=== PATIENT | male | born 1940 | race Caucasian/White ===

== ENCOUNTER 2021-11-04 11:45 | Inpatient (IN) ==
[2021-11-04 12:47] LABS: ABS Eosinophils 0.2 10^3/ul (0-0.6); ABS Lymphocytes 0.6 10^3/ul (1.0-4.8); ABS Monocytes 0.6 10^3/ul (0-0.8); ABS Neutrophils 6.2 10^3/ul (1.5-7.7); Eosinophil % 2.1 %; Hematocrit 32 % (42-52); Hemoglobin 10.8 g/dL (14.0-18.0); Lymphocyte % 8.3 %; Mean Corpuscular HGB Conc 34 g/dL (31-36); Mean Corpuscular Hemoglobin 30 pg (27-31); Mean Corpuscular Volume 90 fL (80-94); Mean Platelet Volume 9.4 fL (7.4-10.4); Nucleated Red Blood Cells % 0.1; Platelet Count 63 10^3/uL (150-450); Red Blood Count 3.57 10^6 /uL (4.18-5.48); Red Cell Distribution Width 19 % (10-15); White Blood Count 7.6 10^3/uL (3.5-10.8)
[2021-11-04 12:59] LABS: ALT 17 U/L (7-52); Albumin 3.1 g/dL (3.2-5.2); Albumin/Globulin Ratio 1.3 (1-3); Alkaline Phosphatase 52 U/L (35-149); Blood Urea Nitrogen 21 mg/dL (6-24); CO2 Carbon Dioxide 28 mmol/L (22-32); Calcium 8.4 mg/dL (8.6-10.3); Chloride 97 mmol/L (101-111); Globulin 2.3 g/dL (2-4); Glucose 340 mg/dL (70-100); Sodium 132 mmol/L (135-145); Total Protein 5.4 g/dL (6.4-8.9); eGFR CKD-EPI 87.5 (>60)
[2021-11-04 13:02] LABS: Magnesium 0.8 mg/dL (1.9-2.7)
[2021-11-04 13:03] LABS: Troponin I 0.03 ng/mL (<0.03)
[2021-11-04] MEDS ORDERED: Magnesium Sulfate 2 gm BAG 2 GM/50 ML BAG IVPB ONE ×3 (13:06→16:12)
[2021-11-04 13:14] LABS: Urine Appearance Clear; Urine Bilirubin Negative (Negative); Urine Blood Negative (Negative); Urine Color Yellow; Urine Glucose 3+(>=500 mg/dL) (Negative); Urine Ketones Negative (Negative); Urine Nitrite Negative (Negative); Urine Protein Negative (Negative); Urine Specific Gravity 1.011 (1.002-1.030); Urine Urobilinogen Negative (Negative)
[2021-11-04 13:23] LABS: Urine Bacteria Absent (Absent); Urine Red Blood Cell Trace(0-2/hpf) (Absent); Urine Squamous Epithelial Cell Present (Absent); Urine White Blood Cell 1+(6-10/hpf) (Absent)
[2021-11-04 13:24] LABS: Anion Gap 7 mmol/L (2-11)
[2021-11-04 13:37] LABS: TSH Ultra Thyroid Stim Horm 7.15 mcIU/mL (0.34-5.60)
[2021-11-04] MEDS ORDERED: Magnesium Hydroxide LIQ 30 ML UDC PO PRN (15:27)
[2021-11-04] MEDS ORDERED: Dextrose 50% Syringe 50 ml 25 GM/50 ML SYRINGE IV PUSH PRN ×2 (15:44→15:49)
[2021-11-04 16:15] LABS: Rapid COVID-19 Molecular Detected (Undetected)
[2021-11-04] MEDS: cefTRIAXone 1 gm/50 mL NS BAG 1 GM/50 ML BAG IVPB SCH (17:24)
[2021-11-04 18:01] LABS: C Reactive Protein 101.94 mg/L (<8.01)
[2021-11-04 18:53] LABS: Magnesium 1.9 mg/dL (1.9-2.7); Potassium Redraw 4.1 mmol/L (3.5-5.0)
[2021-11-04 18:55] LABS: Troponin I 0.04 ng/mL (<0.03)
[2021-11-04 19:31] LABS: Free T4 0.88 ng/dL (0.61-1.12)
[2021-11-04 20:25] LABS: Phosphorus 3.2 mg/dL (2.5-5.0)
[2021-11-04] MEDS: GLYCOPYRROLATE 1 MG PO SCH ×2 (20:25→21:07)
[2021-11-04] MEDS: Calcium Carb (TUMS) 500 mg CHEW TAB PO SCH (20:34)
[2021-11-04] MEDS: DULoxetine DR 20 mg CAP PO SCH (20:35)
[2021-11-04] MEDS: Insulin GLARGINE 100 un/ml 10 ml VIAL SUBCUT SCH (20:36)
[2021-11-04] MEDS: NS 0.9% 1000 ml BAG 1,000 ML IV SCH (21:22)
[2021-11-05 00:49] LABS: Troponin I 0.04 ng/mL (<0.03)
[2021-11-05 05:57] LABS: ABS Eosinophils 0.1 10^3/ul (0-0.6); ABS Lymphocytes 0.6 10^3/ul (1.0-4.8); ABS Monocytes 0.4 10^3/ul (0-0.8); ABS Neutrophils 4.5 10^3/ul (1.5-7.7); Eosinophil % 2.6 %; Hematocrit 31 % (42-52); Hemoglobin 10.4 g/dL (14.0-18.0); Lymphocyte % 10.5 %; Mean Corpuscular HGB Conc 34 g/dL (31-36); Mean Corpuscular Hemoglobin 30 pg (27-31); Mean Corpuscular Volume 89 fL (80-94); Mean Platelet Volume 8.8 fL (7.4-10.4); Nucleated Red Blood Cells % 0.1; Platelet Count 55 10^3/uL (150-450); Red Blood Count 3.44 10^6 /uL (4.18-5.48); Red Cell Distribution Width 19 % (10-15); White Blood Count 5.8 10^3/uL (3.5-10.8)
[2021-11-05 06:10] LABS: C Reactive Protein 111.91 mg/L (<8.01)
[2021-11-05 08:02] LABS: Albumin 2.8 g/dL (3.2-5.2); Albumin/Globulin Ratio 1.3 (1-3); Calcium 7.9 mg/dL (8.6-10.3); Globulin 2.2 g/dL (2-4); Magnesium 1.5 mg/dL (1.9-2.7); Potassium 3.6 mmol/L (3.5-5.0); Total Bilirubin 1.3 mg/dL (0.2-1.0); eGFR CKD-EPI 92.4 (>60)
[2021-11-05] MEDS ORDERED: Magnesium Sulfate IV 3 GM in NS 0.9% 100 ml BAG 100 ML IVPB ONE (08:59)
[2021-11-05] MEDS: GLYCOPYRROLATE 1 MG PO SCH ×4 (10:38→20:54)
[2021-11-05] MEDS: DULoxetine DR 20 mg CAP PO SCH ×2 (10:38→20:54)
[2021-11-05] MEDS: Aspirin EC 81 mg TAB.EC (enteric coated) PO SCH (10:39)
[2021-11-05] MEDS: Calcium Carb (TUMS) 500 mg CHEW TAB PO SCH ×3 (10:39→20:59)
[2021-11-05] MEDS: Potassium Chlor 20 meq TAB.ER PO SCH (10:41)
[2021-11-05] MEDS: Vitamin THERAPEUTIC TAB PO SCH (10:41)
[2021-11-05] MEDS: NS 0.9% 1000 ml BAG 1,000 ML IV SCH (10:42)
[2021-11-05] MEDS: cefTRIAXone 1 gm/50 mL NS BAG 1 GM/50 ML BAG IVPB SCH (17:11)
[2021-11-05] MEDS: Insulin GLARGINE 100 un/ml 10 ml VIAL SUBCUT SCH (20:56)
[2021-11-06 07:05] LABS: ABS Eosinophils 0.2 10^3/ul (0-0.6); ABS Lymphocytes 0.6 10^3/ul (1.0-4.8); ABS Monocytes 0.4 10^3/ul (0-0.8); ABS Neutrophils 3.8 10^3/ul (1.5-7.7); Hematocrit 28 % (42-52); Hemoglobin 9.7 g/dL (14.0-18.0); Lymphocyte % 12.5 %; Mean Corpuscular HGB Conc 35 g/dL (31-36); Mean Corpuscular Hemoglobin 31 pg (27-31); Mean Corpuscular Volume 89 fL (80-94); Mean Platelet Volume 8.9 fL (7.4-10.4); Platelet Count 49 10^3/uL (150-450); Red Blood Count 3.15 10^6 /uL (4.18-5.48); Red Cell Distribution Width 19 % (10-15)
[2021-11-06 07:43] LABS: Calcium 7.4 mg/dL (8.6-10.3); Magnesium 1.5 mg/dL (1.9-2.7); Potassium 3.6 mmol/L (3.5-5.0); eGFR CKD-EPI 87.8 (>60)
[2021-11-06] MEDS: Calcium Carb (TUMS) 500 mg CHEW TAB PO SCH ×2 (09:47→21:43)
[2021-11-06] MEDS: DULoxetine DR 20 mg CAP PO SCH ×2 (09:48→21:43)
[2021-11-06] MEDS: Aspirin EC 81 mg TAB.EC (enteric coated) PO SCH (09:48)
[2021-11-06] MEDS: Vitamin THERAPEUTIC TAB PO SCH (09:48)
[2021-11-06] MEDS: Potassium Chlor 20 meq TAB.ER PO SCH (09:50)
[2021-11-06] MEDS: GLYCOPYRROLATE 1 MG PO SCH ×4 (09:53→21:53)
[2021-11-06] MEDS ORDERED: Magnesium Sulfate IV 3 GM in NS 0.9% 100 ml BAG 100 ML IVPB ONE (11:43)
[2021-11-06] MEDS ORDERED: Insulin GLARGINE 100 un/ml 10 ml VIAL SUBCUT SCH (21:00)
[2021-11-07 07:03] LABS: Blood Urea Nitrogen 12 mg/dL (6-24); CO2 Carbon Dioxide 27 mmol/L (22-32); Calcium 7.6 mg/dL (8.6-10.3); Chloride 100 mmol/L (101-111); Glucose 147 mg/dL (70-100); Magnesium 1.8 mg/dL (1.9-2.7); Sodium 133 mmol/L (135-145); eGFR CKD-EPI 88.5 (>60)
[2021-11-07 07:05] LABS: Hematocrit 27 % (42-52); Hemoglobin 9.5 g/dL (14.0-18.0); Mean Corpuscular HGB Conc 35 g/dL (31-36); Mean Corpuscular Hemoglobin 31 pg (27-31); Mean Corpuscular Volume 89 fL (80-94); Mean Platelet Volume 8.8 fL (7.4-10.4); Platelet Count 50 10^3/uL (150-450); Red Blood Count 3.07 10^6 /uL (4.18-5.48); Red Cell Distribution Width 19 % (10-15); White Blood Count 4.7 10^3/uL (3.5-10.8)
[2021-11-07 07:15] LABS: Anion Gap 6 mmol/L (2-11)
[2021-11-07] MEDS ORDERED: Magnesium Sulfate IV 3 GM in NS 0.9% 100 ml BAG 100 ML IVPB ONE (07:36)
[2021-11-07] MEDS: DULoxetine DR 20 mg CAP PO SCH (08:34)
[2021-11-07] MEDS: Calcium Carb (TUMS) 500 mg CHEW TAB PO SCH (08:35)
[2021-11-07] MEDS: Aspirin EC 81 mg TAB.EC (enteric coated) PO SCH (08:35)
[2021-11-07] MEDS: Potassium Chlor 20 meq TAB.ER PO SCH (08:46)
[2021-11-07] MEDS: Vitamin THERAPEUTIC TAB PO SCH (12:38)
[2021-11-07] MEDS: GLYCOPYRROLATE 1 MG PO SCH (13:02)
[2021-11-07 16:21] VITALS: BP 120/40
== END 2021-11-07 16:05 | DRG 371 ==
LOC: ED 11:45 → SUATTDRO 15:27 → EDHOLD 17:40 → MEDTELE 18:44
PROVIDERS: ADMIT Student in an Organized Health Care Education/Training Program; ATTEND Internal Medicine

== ENCOUNTER 2022-01-27 14:06 | Inpatient (IN) ==
[2022-01-27 14:23] LABS: ABS Basophils 0.1 10^3/ul (0-0.2); ABS Eosinophils 0.2 10^3/ul (0-0.6); ABS Lymphocytes 0.7 10^3/ul (1.0-4.8); ABS Monocytes 0.6 10^3/ul (0-0.8); ABS Neutrophils 8.7 10^3/ul (1.5-7.7); Eosinophil % 1.9 %; Hematocrit 34 % (42-52); Mean Corpuscular HGB Conc 32 g/dL (31-36); Mean Corpuscular Hemoglobin 27 pg (27-31); Mean Corpuscular Volume 84 fL (80-94); Platelet Count 202 10^3/uL (150-450); Red Blood Count 4.07 10^6 /uL (4.18-5.48); Red Cell Distribution Width 17 % (10-15); White Blood Count 10.3 10^3/uL (3.5-10.8)
[2022-01-27 14:33] LABS: INR 1.57 (0.86-1.15)
[2022-01-27 14:41] LABS: Albumin 3.2 g/dL (3.2-5.2); Albumin/Globulin Ratio 1.3 (1-3); Calcium 8.6 mg/dL (8.6-10.3); Globulin 2.4 g/dL (2-4); Potassium 4.3 mmol/L (3.5-5.0); Total Bilirubin 1.2 mg/dL (0.2-1.0); Total Protein 5.6 g/dL (6.4-8.9); eGFR CKD-EPI 67.1 (>60)
[2022-01-27 15:55] LABS: High Sensitivity Troponin 1 Hr 25 pg/mL (<20)
[2022-01-27] MEDS ORDERED: Furosemide 40 mg/4 ml IV VIAL IV ONE (17:07)
[2022-01-27] MEDS ORDERED: Calcium Polycarbophil 625mg TB PO PRN (19:19)
[2022-01-27] MEDS ORDERED: Dextrose 50% Syringe 50 ml 25 GM/50 ML SYRINGE IV PUSH PRN (19:30)
[2022-01-27 20:39] LABS: Urine Appearance Clear; Urine Bilirubin Negative (Negative); Urine Blood 1+ (Negative); Urine Color Straw; Urine Glucose Negative (Negative); Urine Ketones Negative (Negative); Urine Nitrite Negative (Negative); Urine Protein Negative (Negative); Urine Specific Gravity 1.004 (1.002-1.030); Urine Urobilinogen Negative (Negative)
[2022-01-27 20:58] LABS: Urine Bacteria Absent (Absent); Urine Red Blood Cell 1+(3-5/hpf) (Absent); Urine Squamous Epithelial Cell Present (Absent); Urine White Blood Cell Trace(0-5/hpf) (Absent)
[2022-01-27] MEDS ORDERED: Insulin GLARGINE 100 un/ml 10 ml VIAL SUBCUT SCH (21:00)
[2022-01-27] MEDS: DULoxetine DR 20 mg CAP PO SCH (22:38)
[2022-01-27] MEDS: GLYCOPYRROLATE 1 MG PO SCH (22:39)
[2022-01-27 22:55] LABS: Magnesium 1.6 mg/dL (1.9-2.7)
[2022-01-27] MEDS ORDERED: Magnesium Sulf 4 GM/100 ML IV 4,000 MG/100 ML BAG IVPB ONE (23:37)
[2022-01-28] MEDS: Calcium Carb (TUMS) 500 mg CHEW TAB PO SCH ×3 (00:45→21:07)
[2022-01-28] MEDS ORDERED: Furosemide 40 mg/4 ml IV VIAL IV ONE ×2 (06:20)
[2022-01-28 06:21] LABS: ABS Basophils 0.1 10^3/ul (0-0.2); ABS Eosinophils 0.3 10^3/ul (0-0.6); ABS Lymphocytes 0.9 10^3/ul (1.0-4.8); ABS Monocytes 0.8 10^3/ul (0-0.8); Eosinophil % 3.2 %; Hematocrit 32 % (42-52); Hemoglobin 10.5 g/dL (14.0-18.0); Mean Corpuscular HGB Conc 33 g/dL (31-36); Mean Corpuscular Hemoglobin 27 pg (27-31); Mean Corpuscular Volume 84 fL (80-94); Mean Platelet Volume 8.3 fL (7.4-10.4); Platelet Count 155 10^3/uL (150-450); Red Blood Count 3.83 10^6 /uL (4.18-5.48); Red Cell Distribution Width 17 % (10-15); White Blood Count 10.1 10^3/uL (3.5-10.8)
[2022-01-28] MEDS ORDERED: Dextrose 50% Syringe 50 ml 25 GM/50 ML SYRINGE IV PUSH PRN (06:40)
[2022-01-28 06:48] LABS: Calcium 8.6 mg/dL (8.6-10.3); Magnesium 2.5 mg/dL (1.9-2.7); Potassium 3.9 mmol/L (3.5-5.0); eGFR CKD-EPI 66.4 (>60)
[2022-01-28] MEDS ORDERED: Iron Sucrose 200 MG in NS 0.9% 100 ml BAG 100 ML IVPB ONE (08:22)
[2022-01-28 08:36] LABS: Ferritin 108.3 ng/mL (24-336)
[2022-01-28] MEDS: Multivitamins/Minerals TAB PO SCH (10:40)
[2022-01-28] MEDS: Aspirin EC 81 mg TAB.EC (enteric coated) PO SCH (10:41)
[2022-01-28] MEDS: DULoxetine DR 20 mg CAP PO SCH ×2 (10:41→21:05)
[2022-01-28] MEDS: Collagenase 250 units/gm OINT 1 tube TOPICAL SCH (10:41)
[2022-01-28] MEDS: Potassium Chloride LIQUID 20 MEQ/15 ML LIQUID PO SCH (10:42)
[2022-01-28] MEDS: GLYCOPYRROLATE 1 MG PO SCH ×4 (10:42→21:07)
[2022-01-28 12:11] LABS: HDL Cholesterol 25.8 mg/dL
[2022-01-28] MEDS ORDERED: Perflutren Lipid Microsphere 3 ML VIAL ONE (12:50)
[2022-01-28] MEDS: Insulin GLARGINE 100 un/ml 10 ml VIAL SUBCUT SCH (21:07)
[2022-01-29] MEDS ORDERED: Furosemide 40 mg/4 ml IV VIAL IV ONE (07:20)
[2022-01-29 08:57] LABS: Hematocrit 31 % (42-52); Hemoglobin 10.1 g/dL (14.0-18.0); Mean Corpuscular HGB Conc 32 g/dL (31-36); Mean Corpuscular Hemoglobin 27 pg (27-31); Mean Corpuscular Volume 84 fL (80-94); Mean Platelet Volume 8.3 fL (7.4-10.4); Platelet Count 174 10^3/uL (150-450); Red Blood Count 3.71 10^6 /uL (4.18-5.48); Red Cell Distribution Width 17 % (10-15); White Blood Count 10.5 10^3/uL (3.5-10.8)
[2022-01-29] MEDS: Calcium Carb (TUMS) 500 mg CHEW TAB PO SCH ×2 (09:21→22:49)
[2022-01-29] MEDS: DULoxetine DR 20 mg CAP PO SCH ×2 (09:22→22:50)
[2022-01-29] MEDS: Multivitamins/Minerals TAB PO SCH (09:22)
[2022-01-29] MEDS: Aspirin EC 81 mg TAB.EC (enteric coated) PO SCH (09:22)
[2022-01-29] MEDS: Potassium Chloride LIQUID 20 MEQ/15 ML LIQUID PO SCH (09:22)
[2022-01-29] MEDS: Collagenase 250 units/gm OINT 1 tube TOPICAL SCH (09:24)
[2022-01-29 09:27] LABS: Calcium 8.6 mg/dL (8.6-10.3); Potassium 3.9 mmol/L (3.5-5.0); eGFR CKD-EPI 63.7 (>60)
[2022-01-29] MEDS: GLYCOPYRROLATE 1 MG PO SCH ×4 (10:12→22:51)
[2022-01-29] MEDS ORDERED: Iron Sucrose 20 MG/ML 5 ML VIAL IV PUSH ONE (11:13)
[2022-01-29] MEDS ORDERED: Iron Sucrose 200 MG in NS 0.9% 100 ml IVPB ONE (12:00)
[2022-01-29 17:22] LABS: Rapid COVID-19 Molecular Undetected (Undetected)
[2022-01-29] MEDS: Insulin GLARGINE 100 un/ml 10 ml VIAL SUBCUT SCH (22:51)
[2022-01-30 05:57] LABS: Hematocrit 31 % (42-52); Hemoglobin 10.1 g/dL (14.0-18.0); Mean Corpuscular HGB Conc 32 g/dL (31-36); Mean Corpuscular Hemoglobin 27 pg (27-31); Mean Corpuscular Volume 83 fL (80-94); Mean Platelet Volume 8.4 fL (7.4-10.4); Platelet Count 158 10^3/uL (150-450); Red Blood Count 3.75 10^6 /uL (4.18-5.48); Red Cell Distribution Width 17 % (10-15); White Blood Count 14.3 10^3/uL (3.5-10.8)
[2022-01-30 06:13] LABS: Calcium 8.7 mg/dL (8.6-10.3); Magnesium 1.7 mg/dL (1.9-2.7); eGFR CKD-EPI 73.4 (>60)
[2022-01-30] MEDS: Potassium Chloride LIQUID 20 MEQ/15 ML LIQUID PO SCH (08:45)
[2022-01-30] MEDS: GLYCOPYRROLATE 1 MG PO SCH ×4 (08:46→22:35)
[2022-01-30] MEDS: Aspirin EC 81 mg TAB.EC (enteric coated) PO SCH (08:47)
[2022-01-30] MEDS: DULoxetine DR 20 mg CAP PO SCH ×2 (08:47→22:34)
[2022-01-30] MEDS: Multivitamins/Minerals TAB PO SCH (08:48)
[2022-01-30] MEDS: Calcium Carb (TUMS) 500 mg CHEW TAB PO SCH ×2 (08:48→22:34)
[2022-01-30] MEDS: Collagenase 250 units/gm OINT 1 tube TOPICAL SCH (08:49)
[2022-01-30] MEDS ORDERED: Iron Sucrose 20 MG/ML 5 ML VIAL IV PUSH SCH (09:00)
[2022-01-30] MEDS ORDERED: Furosemide 40 mg/4 ml IV VIAL IV ONE (09:17)
[2022-01-30] MEDS: Enoxaparin 40 MG/0.4 ML SYR SUBCUT SCH (10:29)
[2022-01-30] MEDS: Insulin GLARGINE 100 un/ml 10 ml VIAL SUBCUT SCH (22:36)
[2022-01-31 06:29] LABS: Hematocrit 30 % (42-52); Hemoglobin 9.6 g/dL (14.0-18.0); Mean Corpuscular HGB Conc 32 g/dL (31-36); Mean Corpuscular Hemoglobin 27 pg (27-31); Mean Corpuscular Volume 83 fL (80-94); Mean Platelet Volume 8.6 fL (7.4-10.4); Platelet Count 133 10^3/uL (150-450); Red Blood Count 3.58 10^6 /uL (4.18-5.48); Red Cell Distribution Width 17 % (10-15); White Blood Count 9.2 10^3/uL (3.5-10.8)
[2022-01-31 07:06] LABS: Calcium 8.5 mg/dL (8.6-10.3); Magnesium 1.6 mg/dL (1.9-2.7); Potassium 4.2 mmol/L (3.5-5.0); eGFR CKD-EPI 79.9 (>60)
[2022-01-31] MEDS ORDERED: Magnesium Sulf 4 GM/100 ML IV 4,000 MG/100 ML BAG IVPB ONE (07:15)
[2022-01-31] MEDS: Insulin GLARGINE 100 un/ml 10 ml VIAL SUBCUT SCH ×2 (08:56→21:29)
[2022-01-31] MEDS: Enoxaparin 40 MG/0.4 ML SYR SUBCUT SCH (08:58)
[2022-01-31] MEDS: Potassium Chloride LIQUID 20 MEQ/15 ML LIQUID PO SCH (09:04)
[2022-01-31] MEDS: Calcium Carb (TUMS) 500 mg CHEW TAB PO SCH ×2 (09:05→21:27)
[2022-01-31] MEDS: Multivitamins/Minerals TAB PO SCH (09:06)
[2022-01-31] MEDS: Aspirin EC 81 mg TAB.EC (enteric coated) PO SCH (09:06)
[2022-01-31] MEDS: GLYCOPYRROLATE 1 MG PO SCH ×5 (09:07→21:30)
[2022-01-31] MEDS: DULoxetine DR 20 mg CAP PO SCH ×2 (09:08→21:28)
[2022-01-31] MEDS ORDERED: Furosemide 100 mg/10 ml IV VIAL IV ONE (09:45)
[2022-01-31] MEDS: Collagenase 250 units/gm OINT 1 tube TOPICAL SCH (11:15)
[2022-01-31] MEDS: Iron Sucrose 200 MG in NS 0.9% 100 ml IVPB SCH (12:05)
[2022-02-01 06:56] LABS: Hematocrit 32 % (42-52); Hemoglobin 10.1 g/dL (14.0-18.0); Mean Corpuscular HGB Conc 32 g/dL (31-36); Mean Corpuscular Hemoglobin 27 pg (27-31); Mean Corpuscular Volume 84 fL (80-94); Mean Platelet Volume 8.3 fL (7.4-10.4); Platelet Count 130 10^3/uL (150-450); Red Blood Count 3.76 10^6 /uL (4.18-5.48); Red Cell Distribution Width 18 % (10-15); White Blood Count 10.6 10^3/uL (3.5-10.8)
[2022-02-01 07:15] LABS: Calcium 8.6 mg/dL (8.6-10.3); Magnesium 2.1 mg/dL (1.9-2.7); Potassium 4.2 mmol/L (3.5-5.0); eGFR CKD-EPI 76.1 (>60)
[2022-02-01] MEDS: Iron Sucrose 200 MG in NS 0.9% 100 ml IVPB SCH (07:19)
[2022-02-01] MEDS: Enoxaparin 40 MG/0.4 ML SYR SUBCUT SCH (08:20)
[2022-02-01] MEDS: Calcium Carb (TUMS) 500 mg CHEW TAB PO SCH ×2 (08:20→20:50)
[2022-02-01] MEDS: GLYCOPYRROLATE 1 MG PO SCH ×4 (08:22→22:19)
[2022-02-01] MEDS: Insulin GLARGINE 100 un/ml 10 ml VIAL SUBCUT SCH ×2 (08:22→20:49)
[2022-02-01] MEDS: Multivitamins/Minerals TAB PO SCH (08:23)
[2022-02-01] MEDS: Potassium Chloride LIQUID 20 MEQ/15 ML LIQUID PO SCH (08:23)
[2022-02-01] MEDS: Collagenase 250 units/gm OINT 1 tube TOPICAL SCH (08:24)
[2022-02-01] MEDS: DULoxetine DR 20 mg CAP PO SCH ×2 (08:24→20:54)
[2022-02-01 10:07] LABS: Activated Partial Thrombo Time 36.4 seconds (26.0-38.0); INR 1.2 (0.86-1.15)
[2022-02-01] MEDS ORDERED: Furosemide 40 mg/4 ml IV VIAL IV ONE (14:54)
[2022-02-01] MEDS: Heparin 5000 UNITS/ML 1 mL VIAL SUBCUT SCH (20:50)
[2022-02-01] MEDS ORDERED: Piperacillin/Tazobac ADVAN 3.375 GM in NS 0.9% 100 ml BAG 100 ML IVPB ONE (21:30)
[2022-02-01 21:31] LABS: ABS Eosinophils 0.1 10^3/ul (0-0.6); ABS Lymphocytes 0.7 10^3/ul (1.0-4.8); ABS Monocytes 1.1 10^3/ul (0-0.8); ABS Neutrophils 11.4 10^3/ul (1.5-7.7); Eosinophil % 0.6 %; Hematocrit 31 % (42-52); Hemoglobin 9.7 g/dL (14.0-18.0); Lymphocyte % 5.3 %; Mean Corpuscular HGB Conc 32 g/dL (31-36); Mean Corpuscular Hemoglobin 26 pg (27-31); Mean Corpuscular Volume 82 fL (80-94); Mean Platelet Volume 8.5 fL (7.4-10.4); Platelet Count 128 10^3/uL (150-450); Red Blood Count 3.73 10^6 /uL (4.18-5.48); Red Cell Distribution Width 17 % (10-15); White Blood Count 13.3 10^3/uL (3.5-10.8)
[2022-02-01 21:38] LABS: INR 1.3 (0.86-1.15)
[2022-02-01] MEDS ORDERED: Zosyn per Pharmacy NOTE FOLLOW UP SCH (22:00)
[2022-02-01 22:02] LABS: C Reactive Protein 118.36 mg/L (<8.01); Calcium 8.5 mg/dL (8.6-10.3); eGFR CKD-EPI 67.1 (>60)
[2022-02-01] MEDS ORDERED: NS 0.9% 500 ml BAG 500 ML IV SCH (23:45)
[2022-02-01] MEDS ORDERED: NS 0.9% 250 ml 250 ML IV ONE (23:49)
[2022-02-02] MEDS: ZOSYN 3.375 GM Q8H per EXTENDED INFUSION IV SCH ×3 (02:42→18:16)
[2022-02-02 02:59] LABS: Urine Appearance Turbid; Urine Bilirubin Negative (Negative); Urine Blood 3+ (Negative); Urine Color Amber; Urine Glucose Negative (Negative); Urine Ketones Negative (Negative); Urine Nitrite Negative (Negative); Urine Protein 1+(30 mg/dL) (Negative); Urine Urobilinogen Negative (Negative)
[2022-02-02 03:04] LABS: Urine Bacteria 1+ (Absent); Urine Red Blood Cell Trace(0-2/hpf) (Absent); Urine White Blood Cell 3+(>20/hpf) (Absent)
[2022-02-02 08:52] LABS: Hematocrit 28 % (42-52); Hemoglobin 8.9 g/dL (14.0-18.0); Mean Corpuscular HGB Conc 32 g/dL (31-36); Mean Corpuscular Hemoglobin 26 pg (27-31); Mean Corpuscular Volume 82 fL (80-94); Mean Platelet Volume 8.7 fL (7.4-10.4); Platelet Count 106 10^3/uL (150-450); Red Blood Count 3.38 10^6 /uL (4.18-5.48); Red Cell Distribution Width 18 % (10-15)
[2022-02-02 09:07] LABS: Calcium 8.2 mg/dL (8.6-10.3); Magnesium 1.7 mg/dL (1.9-2.7); Potassium 4.1 mmol/L (3.5-5.0); eGFR CKD-EPI 42.6 (>60)
[2022-02-02] MEDS: Iron Sucrose 200 MG in NS 0.9% 100 ml IVPB SCH (10:18)
[2022-02-02] MEDS: Potassium Chloride LIQUID 20 MEQ/15 ML LIQUID PO SCH (10:19)
[2022-02-02] MEDS: GLYCOPYRROLATE 1 MG PO SCH ×4 (10:20→20:54)
[2022-02-02] MEDS: Insulin GLARGINE 100 un/ml 10 ml VIAL SUBCUT SCH ×2 (10:20→20:49)
[2022-02-02] MEDS: Heparin 5000 UNITS/ML 1 mL VIAL SUBCUT SCH ×2 (10:21→20:48)
[2022-02-02] MEDS: DULoxetine DR 20 mg CAP PO SCH ×2 (10:21→20:50)
[2022-02-02] MEDS: Collagenase 250 units/gm OINT 1 tube TOPICAL SCH (10:21)
[2022-02-02] MEDS: Calcium Carb (TUMS) 500 mg CHEW TAB PO SCH ×2 (10:21→20:49)
[2022-02-02] MEDS: Multivitamins/Minerals TAB PO SCH (10:21)
[2022-02-02] MEDS ORDERED: Magnesium Sulfate 2 gm BAG 2 GM/50 ML BAG IVPB ONE (12:42)
[2022-02-03] MEDS: ZOSYN 3.375 GM Q8H per EXTENDED INFUSION IV SCH (02:24)
[2022-02-03 06:13] LABS: ABS Eosinophils 0.3 10^3/ul (0-0.6); ABS Lymphocytes 0.4 10^3/ul (1.0-4.8); ABS Monocytes 0.6 10^3/ul (0-0.8); Eosinophil % 3.1 %; Hematocrit 28 % (42-52); Lymphocyte % 4.4 %; Mean Corpuscular HGB Conc 32 g/dL (31-36); Mean Corpuscular Hemoglobin 27 pg (27-31); Mean Corpuscular Volume 83 fL (80-94); Mean Platelet Volume 8.8 fL (7.4-10.4); Platelet Count 93 10^3/uL (150-450); Red Blood Count 3.36 10^6 /uL (4.18-5.48); Red Cell Distribution Width 18 % (10-15); White Blood Count 8.2 10^3/uL (3.5-10.8)
[2022-02-03 06:27] LABS: Albumin 2.3 g/dL (3.2-5.2); Albumin/Globulin Ratio 1.1 (1-3); C Reactive Protein 173.5 mg/L (<8.01); Calcium 8.2 mg/dL (8.6-10.3); Globulin 2.1 g/dL (2-4); Magnesium 2.3 mg/dL (1.9-2.7); Potassium 3.9 mmol/L (3.5-5.0); Total Protein 4.4 g/dL (6.4-8.9); eGFR CKD-EPI 32.9 (>60)
[2022-02-03] MEDS: Calcium Carb (TUMS) 500 mg CHEW TAB PO SCH ×2 (08:53→21:23)
[2022-02-03] MEDS: Multivitamins/Minerals TAB PO SCH (08:54)
[2022-02-03] MEDS: DULoxetine DR 20 mg CAP PO SCH ×2 (08:55→21:23)
[2022-02-03] MEDS: Heparin 5000 UNITS/ML 1 mL VIAL SUBCUT SCH ×2 (08:56→21:24)
[2022-02-03] MEDS: Collagenase 250 units/gm OINT 1 tube TOPICAL SCH (08:56)
[2022-02-03] MEDS: GLYCOPYRROLATE 1 MG PO SCH ×4 (08:57→21:24)
[2022-02-03] MEDS: Potassium Chloride LIQUID 20 MEQ/15 ML LIQUID PO SCH (08:57)
[2022-02-03] MEDS ORDERED: Furosemide 20 mg/2 ml IV VIAL IV ONE (09:03)
[2022-02-03] MEDS: Insulin GLARGINE 100 un/ml 10 ml VIAL SUBCUT SCH ×2 (10:12→21:24)
[2022-02-03] MEDS: cefTRIAXone 1 gm/50 mL D5W 1 GM/50 ML BAG IV SCH (10:17)
[2022-02-03] MEDS ORDERED: Iodixanol (CONTRAST) 320 MG/ML 100 ML SDV IV ONE (14:51)
[2022-02-03] MEDS: Bismuth Subsalicylate (BTL) 525 MG/30 ML (BULK BTL) PO PRN ×2 (15:09→16:27)
[2022-02-04 07:36] LABS: Hematocrit 29 % (42-52); Hemoglobin 9.2 g/dL (14.0-18.0); Mean Corpuscular HGB Conc 32 g/dL (31-36); Mean Corpuscular Hemoglobin 27 pg (27-31); Mean Corpuscular Volume 83 fL (80-94); Mean Platelet Volume 8.4 fL (7.4-10.4); Platelet Count 110 10^3/uL (150-450); Red Blood Count 3.45 10^6 /uL (4.18-5.48); Red Cell Distribution Width 18 % (10-15); White Blood Count 7.5 10^3/uL (3.5-10.8)
[2022-02-04 08:11] LABS: Calcium 8.4 mg/dL (8.6-10.3); Potassium 3.8 mmol/L (3.5-5.0); eGFR CKD-EPI 44.6 (>60)
[2022-02-04 08:43] LABS: Anisocytosis 1+; Polychromasia 1+
[2022-02-04 08:44] LABS: ABS Eosinophils 0.3 10^3/ul (0-0.6); ABS Lymphocytes 0.4 10^3/ul (1.0-4.8); ABS Monocytes 0.6 10^3/ul (0-0.8); Eosinophil % 4.5 %
[2022-02-04] MEDS ORDERED: Furosemide 20 mg/2 ml IV VIAL IV SLOW PU ONE (09:27)
[2022-02-04] MEDS: Insulin GLARGINE 100 un/ml 10 ml VIAL SUBCUT SCH ×2 (09:40→21:47)
[2022-02-04] MEDS: Collagenase 250 units/gm OINT 1 tube TOPICAL SCH (09:41)
[2022-02-04] MEDS: cefTRIAXone 1 gm/50 mL D5W 1 GM/50 ML BAG IV SCH (09:42)
[2022-02-04] MEDS: GLYCOPYRROLATE 1 MG PO SCH ×4 (09:52→20:24)
[2022-02-04] MEDS: DULoxetine DR 20 mg CAP PO SCH ×2 (09:53→20:24)
[2022-02-04] MEDS: Potassium Chloride LIQUID 20 MEQ/15 ML LIQUID PO SCH (09:54)
[2022-02-04] MEDS: Calcium Carb (TUMS) 500 mg CHEW TAB PO SCH ×2 (09:54→20:24)
[2022-02-04] MEDS: Heparin 5000 UNITS/ML 1 mL VIAL SUBCUT SCH ×2 (09:55→20:25)
[2022-02-04] MEDS: Multivitamins/Minerals TAB PO SCH (09:56)
[2022-02-04] MEDS ORDERED: fentaNYL 100 mcg/2 ml 50 MCG/ML VIAL ONE (12:26)
[2022-02-04 13:39] LABS: Body Fluid WBC 274 /mcL
[2022-02-04 14:24] LABS: Body Fluid Mono 20 %; Body Fluid Total Cells Counted 200
[2022-02-04 14:25] LABS: Body Fluid Appearance Clear; Body Fluid Color Yellow; Body Fluid Source Pleural Fluid
[2022-02-05 08:42] LABS: Calcium 8.5 mg/dL (8.6-10.3); Potassium 3.7 mmol/L (3.5-5.0)
[2022-02-05] MEDS: GLYCOPYRROLATE 1 MG PO SCH ×4 (09:56→21:30)
[2022-02-05] MEDS: Potassium Chloride LIQUID 20 MEQ/15 ML LIQUID PO SCH (09:57)
[2022-02-05] MEDS: Multivitamins/Minerals TAB PO SCH (09:57)
[2022-02-05] MEDS: Heparin 5000 UNITS/ML 1 mL VIAL SUBCUT SCH ×2 (09:57→21:28)
[2022-02-05] MEDS: Calcium Carb (TUMS) 500 mg CHEW TAB PO SCH ×2 (09:57→21:28)
[2022-02-05] MEDS: DULoxetine DR 20 mg CAP PO SCH ×2 (09:57→21:27)
[2022-02-05] MEDS: Insulin GLARGINE 100 un/ml 10 ml VIAL SUBCUT SCH ×2 (09:59→21:28)
[2022-02-05] MEDS: Collagenase 250 units/gm OINT 1 tube TOPICAL SCH (10:37)
[2022-02-05] MEDS: cefTRIAXone 1 gm/50 mL D5W 1 GM/50 ML BAG IV SCH (11:54)
[2022-02-05] MEDS: Meropenem 1 GM PREMIX(*) 1 GM/50 ML BAG IV SCH ×2 (16:00→21:27)
[2022-02-06] MEDS: Meropenem 1 GM PREMIX(*) 1 GM/50 ML BAG IV SCH ×2 (04:33→12:54)
[2022-02-06 08:14] LABS: ABS Eosinophils 0.2 10^3/ul (0-0.6); ABS Lymphocytes 0.5 10^3/ul (1.0-4.8); ABS Monocytes 0.5 10^3/ul (0-0.8); Eosinophil % 4.7 %; Hematocrit 32 % (42-52); Hemoglobin 10.3 g/dL (14.0-18.0); Lymphocyte % 9.7 %; Mean Corpuscular HGB Conc 32 g/dL (31-36); Mean Corpuscular Hemoglobin 27 pg (27-31); Mean Corpuscular Volume 83 fL (80-94); Mean Platelet Volume 8.9 fL (7.4-10.4); Platelet Count 112 10^3/uL (150-450); Red Blood Count 3.86 10^6 /uL (4.18-5.48); Red Cell Distribution Width 17 % (10-15); White Blood Count 5.2 10^3/uL (3.5-10.8)
[2022-02-06 08:27] LABS: Calcium 8.3 mg/dL (8.6-10.3); Potassium 3.7 mmol/L (3.5-5.0); eGFR CKD-EPI 50.8 (>60)
[2022-02-06] MEDS: GLYCOPYRROLATE 1 MG PO SCH ×4 (09:10→20:34)
[2022-02-06] MEDS: Potassium Chloride LIQUID 20 MEQ/15 ML LIQUID PO SCH (09:11)
[2022-02-06] MEDS: Calcium Carb (TUMS) 500 mg CHEW TAB PO SCH ×2 (09:12→20:33)
[2022-02-06] MEDS: DULoxetine DR 20 mg CAP PO SCH ×2 (09:12→20:32)
[2022-02-06] MEDS: Multivitamins/Minerals TAB PO SCH (09:13)
[2022-02-06] MEDS: Heparin 5000 UNITS/ML 1 mL VIAL SUBCUT SCH ×2 (09:13→20:33)
[2022-02-06] MEDS: Insulin GLARGINE 100 un/ml 10 ml VIAL SUBCUT SCH ×2 (09:25→20:34)
[2022-02-06 10:39] LABS: Glucose, BF 131 mg/dL
[2022-02-06 10:43] LABS: Fluid Type, Protein, Total PLEURAL; Total Protein, BF 1.9 g/dL
[2022-02-06 10:57] LABS: Fluid Type, Amylase PLEURAL
[2022-02-06] MEDS: Collagenase 250 units/gm OINT 1 tube TOPICAL SCH (12:52)
[2022-02-06] MEDS ORDERED: Furosemide 40 mg/4 ml IV VIAL IV ONE (14:18)
[2022-02-06 16:57] LABS: Rapid COVID-19 Molecular Undetected (Undetected)
[2022-02-06 19:03] LABS: TSH Ultra Thyroid Stim Horm 7.45 mcIU/mL (0.34-5.60)
[2022-02-06] MEDS ORDERED: Sulfamethox/Trimethoprim DS TAB 800/160 mg PO SCH (20:00)
[2022-02-06] MEDS: Sulfamethox/Trimethoprim DS TAB 800/160 mg PO SCH (20:34)
[2022-02-07 06:38] LABS: ABS Eosinophils 0.3 10^3/ul (0-0.6); ABS Lymphocytes 0.7 10^3/ul (1.0-4.8); ABS Monocytes 0.5 10^3/ul (0-0.8); ABS Neutrophils 4.9 10^3/ul (1.5-7.7); Eosinophil % 4.3 %; Hematocrit 31 % (42-52); Hemoglobin 10.2 g/dL (14.0-18.0); Lymphocyte % 11.4 %; Mean Corpuscular HGB Conc 33 g/dL (31-36); Mean Corpuscular Hemoglobin 27 pg (27-31); Mean Corpuscular Volume 82 fL (80-94); Mean Platelet Volume 8.7 fL (7.4-10.4); Platelet Count 129 10^3/uL (150-450); Red Blood Count 3.76 10^6 /uL (4.18-5.48); Red Cell Distribution Width 17 % (10-15); White Blood Count 6.5 10^3/uL (3.5-10.8)
[2022-02-07 06:49] LABS: Calcium 8.6 mg/dL (8.6-10.3); Magnesium 1.5 mg/dL (1.9-2.7); Potassium 3.7 mmol/L (3.5-5.0)
[2022-02-07] MEDS ORDERED: Magnesium Sulfate 2 gm BAG 2 GM/50 ML BAG IV ONE (07:45)
[2022-02-07] MEDS ORDERED: Magnesium Sulfate 1 GM IV 1 GM/100 ML BAG IV ONE (08:45)
[2022-02-07] MEDS: Insulin GLARGINE 100 un/ml 10 ml VIAL SUBCUT SCH ×2 (08:59→20:55)
[2022-02-07] MEDS: Heparin 5000 UNITS/ML 1 mL VIAL SUBCUT SCH ×2 (08:59→20:54)
[2022-02-07] MEDS: Potassium Chloride LIQUID 20 MEQ/15 ML LIQUID PO SCH (09:00)
[2022-02-07] MEDS: Multivitamins/Minerals TAB PO SCH (09:01)
[2022-02-07] MEDS: DULoxetine DR 20 mg CAP PO SCH ×2 (09:02→20:53)
[2022-02-07] MEDS: Calcium Carb (TUMS) 500 mg CHEW TAB PO SCH ×2 (09:03→20:54)
[2022-02-07] MEDS: GLYCOPYRROLATE 1 MG PO SCH ×4 (09:04→20:57)
[2022-02-07] MEDS: Collagenase 250 units/gm OINT 1 tube TOPICAL SCH (09:04)
[2022-02-07 10:03] LABS: PCO2 Arterial 51 mmHg (35-45); PO2 Arterial 93 mmHg (80-100)
[2022-02-07] MEDS: Sulfamethox/Trimethoprim DS TAB 800/160 mg PO SCH (20:54)
[2022-02-08 07:02] LABS: Calcium 8.6 mg/dL (8.6-10.3); Magnesium 1.7 mg/dL (1.9-2.7); Potassium 4.1 mmol/L (3.5-5.0); eGFR CKD-EPI 52.1 (>60)
[2022-02-08] MEDS: Insulin GLARGINE 100 un/ml 10 ml VIAL SUBCUT SCH ×2 (09:24→20:56)
[2022-02-08] MEDS: Calcium Carb (TUMS) 500 mg CHEW TAB PO SCH ×2 (09:25→20:55)
[2022-02-08] MEDS: Potassium Chloride LIQUID 20 MEQ/15 ML LIQUID PO SCH (09:25)
[2022-02-08] MEDS: GLYCOPYRROLATE 1 MG PO SCH ×4 (09:25→20:57)
[2022-02-08] MEDS: DULoxetine DR 20 mg CAP PO SCH ×2 (09:26→20:55)
[2022-02-08] MEDS: Multivitamins/Minerals TAB PO SCH (09:26)
[2022-02-08] MEDS: Heparin 5000 UNITS/ML 1 mL VIAL SUBCUT SCH ×2 (09:26→20:54)
[2022-02-08] MEDS ORDERED: Magnesium Sulfate 2 gm BAG 2 GM/50 ML BAG IVPB ONE (10:13)
[2022-02-08] MEDS: Collagenase 250 units/gm OINT 1 tube TOPICAL SCH (10:38)
[2022-02-08] MEDS: Sulfamethox/Trimethoprim DS TAB 800/160 mg PO SCH (20:57)
[2022-02-09] MEDS: Heparin 5000 UNITS/ML 1 mL VIAL SUBCUT SCH ×2 (08:40→21:56)
[2022-02-09] MEDS: Potassium Chloride LIQUID 20 MEQ/15 ML LIQUID PO SCH (08:40)
[2022-02-09] MEDS: Calcium Carb (TUMS) 500 mg CHEW TAB PO SCH ×2 (08:42→22:00)
[2022-02-09] MEDS: Insulin GLARGINE 100 un/ml 10 ml VIAL SUBCUT SCH ×2 (08:42→21:57)
[2022-02-09] MEDS: Multivitamins/Minerals TAB PO SCH (08:43)
[2022-02-09] MEDS: DULoxetine DR 20 mg CAP PO SCH ×2 (08:43→22:02)
[2022-02-09] MEDS: GLYCOPYRROLATE 1 MG PO SCH ×4 (10:11→21:58)
[2022-02-09] MEDS: Collagenase 250 units/gm OINT 1 tube TOPICAL SCH (10:12)
[2022-02-09] MEDS: Sulfamethox/Trimethoprim DS TAB 800/160 mg PO SCH (22:01)
[2022-02-10] MEDS: Potassium Chloride LIQUID 20 MEQ/15 ML LIQUID PO SCH (08:44)
[2022-02-10] MEDS: Heparin 5000 UNITS/ML 1 mL VIAL SUBCUT SCH (08:44)
[2022-02-10] MEDS: Calcium Carb (TUMS) 500 mg CHEW TAB PO SCH ×2 (08:44→21:40)
[2022-02-10] MEDS: Insulin GLARGINE 100 un/ml 10 ml VIAL SUBCUT SCH (08:48)
[2022-02-10] MEDS: DULoxetine DR 20 mg CAP PO SCH ×2 (08:48→21:40)
[2022-02-10] MEDS: Multivitamins/Minerals TAB PO SCH (08:49)
[2022-02-10] MEDS: GLYCOPYRROLATE 1 MG PO SCH ×4 (08:50→21:41)
[2022-02-10] MEDS: Collagenase 250 units/gm OINT 1 tube TOPICAL SCH (08:51)
[2022-02-10] MEDS ORDERED: Enoxaparin 40 MG/0.4 ML SYR SUBCUT SCH (21:00)
[2022-02-10] MEDS ORDERED: Insulin GLARGINE 100 un/ml 10 ml VIAL SUBCUT SCH (21:00)
[2022-02-10] MEDS: Sulfamethox/Trimethoprim DS TAB 800/160 mg PO SCH (21:46)
[2022-02-11 08:59] VITALS: BP 119/51
[2022-02-11] MEDS: Calcium Carb (TUMS) 500 mg CHEW TAB PO SCH (09:16)
[2022-02-11] MEDS: Multivitamins/Minerals TAB PO SCH (09:17)
[2022-02-11] MEDS: DULoxetine DR 20 mg CAP PO SCH (09:17)
[2022-02-11] MEDS: Potassium Chloride LIQUID 20 MEQ/15 ML LIQUID PO SCH (09:17)
[2022-02-11] MEDS: Collagenase 250 units/gm OINT 1 tube TOPICAL SCH (09:18)
[2022-02-11] MEDS: GLYCOPYRROLATE 1 MG PO SCH ×2 (09:21→11:49)
[2022-02-11 09:25] LABS: Blood Urea Nitrogen 16 mg/dL (6-24); CO2 Carbon Dioxide 28 mmol/L (22-32); Calcium 8.8 mg/dL (8.6-10.3); Chloride 98 mmol/L (101-111); Glucose 126 mg/dL (70-100); Sodium 132 mmol/L (135-145); eGFR CKD-EPI 49.5 (>60)
[2022-02-11 09:31] LABS: Anion Gap 6 mmol/L (2-11)
[2022-02-11] MEDS: Insulin GLARGINE 100 un/ml 10 ml VIAL SUBCUT SCH (09:36)
[2022-02-11 12:17] LABS: Rapid COVID-19 Molecular Undetected (Undetected)
== END 2022-02-11 15:57 | DRG 291 ==
LOC: ED 14:06 → SUATTDRO 18:40 → EDHOLD 18:40 → MEDTELE 01-28 03:15
PROVIDERS: ADMIT Student in an Organized Health Care Education/Training Program; ATTEND Internal Medicine